=== PATIENT | male | born 1955 | race Caucasian/White ===

== ENCOUNTER 2017-08-27 09:05 | Day surgery (SDC) | payer OTHER ==
--- NOTE | 2017-08-24 14:45 | Pre-op HX & Phy Repo 2 SIG ---
Scheduled to undergo outpatient endoscopy 08/27/2017. HISTORY OF PRESENT ILLNESS: The patient is a 62-year-old male, in overall good health with recurring pouchitis and some difficulty with intubation involving his Larios type of Kock pouch continent ileostomy. The patient had a past history of ulcerative colitis in the . In 2003, he underwent abdominal colectomy with Tatum ileostomy followed by creation of an ileoanal J-pouch in August 2004. He had constant incontinence of stool and gas following his J-pouch surgery and up to 15 bowel movements per day. He was on multiple medical treatments and requiring insulin and hypertension medications. He underwent resection of his failed ileoanal J pouch in January 2016 with abdominoperineal proctectomy and creation of a Larios continent ileostomy. Following that surgery, he did well and was able to discontinue his prior medications for hypertension. The patient usually intubates four to five times per day, but has had recurring difficulties with pouchitis with cramps and watery output. This has responded to Flagyl and Cipro at times using both together. He has also had some difficulty inserting his intubation catheter to evacuate the pouch contents. He has been taking probiotics and Pepto-Bismol and occasionally goes several months without a flare up of pouchitis, but has been having difficulties for sometime. He is scheduled to undergo endoscopy of his Larios continent ileostomy pouch without requiring any anesthesia or sedation. MEDICATIONS: Insulin, Protonix, Statin, Probiotic ALLERGIES: Sulfa and Bactrim. OPERATIONS: In addition to the above, he underwent cholecystectomy in 2012 and surgery for deviated septum. REVIEW OF SYSTEMS: The patient in the past has had severe sleep apnea. In 2001, he had PCP pneumonia. PHYSICAL EXAMINATION: The patient is 5 foot 6 inches, approximately 140 pounds. [place] and [place] be examined upon arrival and dictated separately. IMPRESSION: 1. Malfunctioning Larios continent ileostomy with recurring pouchitis and some difficulty with intubation. 2. History of ulcerative colitis. 3. History of sleep apnea in the past. 4. Status post multiple abdominal operations. 5. a. Abdominal colectomy and Tatum ileostomy May 2004. 6. b. Ileoanal J-pouch August 2004. 7. c. Cholecystectomy 2012. 8. d. Resection of failed J-pouch with abdominoperineal proctectomy, segmental small bowel resection, and creation of Larios continent ileostomy in January 2016. DISCUSSION: I have had a full discussion with the patient regarding the nature of the pouch endoscopy, which does not require anesthesia or sedation. He understands and agrees to proceed. Theron Michele M.D. DR: KAYLAN JOB#: [id number] CC: ANNY
[~2017-08-27] VITALS: Ht 167.6 cm; Wt 64.4 kg
[~2017-08-27 09:05] MED LIST: ATORVASTATIN CA40 MG ORAL; COREG25 MG ORAL; HUMALOG100 UNIT/3 SUBQ; LEVEMIR100 UNIT/1 SUBQ; PREVACID30 M2 ORAL; PRILOSEC40 MG ORAL; RAMIPRIL5 MG ORAL
[2017-08-27 09:58] VITALS: BP 126/79
[2017-08-27] MEDS ORDERED: PANTOPRAZOLE SO20 MG ORAL (10:01)
--- NOTE | 2017-08-27 11:53 | Pre-Procedure Note/Attestation ---
Pre-Procedure Note/Attestation Complete Prior to Procedure Planned Procedure: not applicable Procedure Narrative: Larios Continent Ileostomy Pouch endoscopy Indications for Procedure Pre-Operative Diagnosis: Malfunctioning Larios continent ileostomy Attestation I attest that I discussed the nature of the procedure; its benefits; risks and complications; and alternatives (and the risks and benefits of such alternatives ), prior to the procedure, with the patient (or the patient's legal customer assistance representative). I attest that, if there was a reasonable possibility of needing a blood transfusion, the patient (or the patient's legal customer assistance representative) was given the [facility] standardized written summary, pursuant to the Vish [place] Blood Safety Act ([place] Health and Safety Code # 1645, as amended). I attest that I re-evaluated the patient just prior to the surgery and that there has been no change in the patient's H&P, except as documented below:none JANNA FLORES Aug 27, 2017 11:53
[2017-08-27 12:40] VITALS: BP 125/76
--- NOTE | 2017-08-27 12:45 | Brief Operative Note ---
Immediate Post Operative Note Operative Note Pre-op Diagnosis: Malfunctioning Larios continent ileostomy Procedure: Larios continent ileostomy pouch endoscopy Post-op Diagnosis: angulation and redundancy of access segment Post-op Diagnosis: same as pre-op Findings: consistent w/pre-op dx studies Surgeon: carl Anesthesia: other - none Specimen: none Complications: none Condition: stable Fluids: none Estimated Blood Loss: none Drains: none Implant(s) used?: JANNA Paredes Aug 27, 2017 12:45
--- NOTE | 2017-08-27 15:30 | Procedure Note ---
DATE OF PROCEDURE: 08/27/2017 ENDOSCOPY PROCEDURE REPORT ENDOSCOPIST: Dr. Theron Michele. SECOND BUTLER: None. ANESTHESIA: None. SEDATION: None. PRE-ENDOSCOPY DIAGNOSES: 1. Malfunctioning Larios continent ileostomy with recurring pouchitis and intermittent difficulty with intubation. 2. History of ulcerative colitis. 3. Status post total colectomy with ileoanal J pouch in 2004. 4. Status post resection of failed J-pouch with proctectomy and creation of Larios continent ileostomy in 01/2016. POST-ENDOSCOPY DIAGNOSES: 1. Malfunctioning Larios continent ileostomy with recurring pouchitis and intermittent difficulty with intubation. 2. History of ulcerative colitis. 3. Status post total colectomy with ileoanal J pouch in 2004. 4. Status post resection of failed J-pouch with proctectomy and creation of Larios continent ileostomy in 01/2016. ENDOSCOPY PERFORMED: Larios continent ileostomy pouch endoscopy. FINDINGS: Slight redundancy of the access segment with the distance from the stoma to the tip of the nipple valve 10 centimeters, which in this patient should be 7 to 8 cm. There is an angulation of the access segment approximately 4 to 5 cm deep to the mucocutaneous junction. The pouch mucosa was completely normal and the valve was normal. DESCRIPTION OF PROCEDURE: The patient was positioned supine in the GI lab without any anesthesia or sedation given or required. Using a GIF-P140 endoscope, the stoma was entered and with some manipulation, the pouch was entered. It was distensible and the mucosa was completely normal throughout. Retroflexed views revealed a circumferentially well-formed nipple valve. Withdrawal views confirmed the above findings including the angulation. I was able to insert a 28-[place] catheter with mild manipulation into the pouch to decompress him before and after the endoscopy. He tolerated the endoscopy well. He will continue his current treatment for intermittent pouchitis and if he has increasing difficulty with intubation, will need revision of the stoma in depth and possible laparotomy if the angulation is too deep to reach with a stoma revision. Theron Michele M.D. DR: VENTURA JOB#: [id number] CC: ANNY
== END 2017-08-27 13:05 | disposition home or self-care (01) ==
LOC: GAS 09:05
DX: K94.13 Enterostomy malfunction (principal); K51.90 Ulcerative colitis, unspecified, without complications; Z90.49 Acquired absence of other specified parts of digestive tract; Z88.2 Allergy status to sulfonamides
CPT/HCPCS: 82962